=== PATIENT | male | born 1965 | race Caucasian/White ===

== ENCOUNTER 2017-05-05 14:16 | Emergency (ER) | payer MEDICARE ==
[~2017-05-05] VITALS: Ht 167.6 cm; Wt 121.0 kg
[~2017-05-05 14:16] MED LIST: ATIVAN1 MG PO; B12; BUT/APAP/CAF PO; CARVEDILOL12.5 MG PO; CYMBALTA60 MG PO; DIABETIC SHOES XX; DILANTIN100 MG PO; DULOXETINE HCL60 MG; DULOXETINE HCL60 MG PO; FIORICET 50-3001 CAP PO; FIORICET PO; GABAPENTIN800 MG PO; GLIPIZIDE10 M3; GLIPIZIDE10 M3 PO; IMITREX50 M1 PO; LAMICTAL150 M1 PO; LAMICTAL25 M2 PO; LISINOP/HCTZ1 TA2 PO; LORTAB 7.5-3251 TAB; MEPERITAB50 MG PO; METFORMIN HCL1000 MG PO; NAPROSYN500 MG PO; NAPROXEN500 MG PO; NORCO1 TA1 PO; PHENERGAN25 MG/TAB PO; PHENYTOIN EX100 M1 PO; PRAVASTATIN SOD20 MG PO; PRAVASTATIN SOD40 MG PO; PRAVASTATIN80 MG PO; TIZANIDINE4 MG PO; TRAZODONE100 MG PO; VIAGRA25 MG PO; ZANAFLEX4 M2 PO
[2017-05-05] MEDS ORDERED: RIZATRIPTAN BEN10 M1 PO (14:41)
[2017-05-05 15:44] VITALS: BP 143/100
== END 2017-05-05 15:49 | disposition home or self-care (01) ==
LOC: ED 14:16
DX: S43.402A Unspecified sprain of left shoulder joint, initial encounter (principal); I10 Essential (primary) hypertension; E11.9 Type 2 diabetes mellitus without complications; F41.9 Anxiety disorder, unspecified; X58.XXXA Exposure to other specified factors, initial encounter

== ENCOUNTER 2017-08-09 09:11 | Emergency (ER) | payer MEDICARE ==
[~2017-08-09] VITALS: Ht 167.6 cm; Wt 120.4 kg
[~2017-08-09 09:11] MED LIST changes: +RIZATRIPTAN BEN10 M1 PO
[2017-08-09] MEDS ORDERED: TEMAZEPAM15 MG PO (09:27)
[2017-08-09] MEDS ORDERED: ROBAXIN-750750 MG PO (09:28)
[2017-08-09] MEDS ORDERED: COUMADIN5 MG PO ×2 (09:34→09:35)
[2017-08-09 10:27] LABS: INTERNATIONAL NORMALIZED RATIO 1.7 RATIO (0.7-1.3); PROTHROMBIN TIME 18.8 SECONDS (9.0-12.5)
[2017-08-09 10:59] VITALS: BP 120/79
== END 2017-08-09 11:11 | disposition home or self-care (01) ==
LOC: ED 09:11
PROVIDERS: Family Medicine
DX: R79.1 Abnormal coagulation profile (principal); I82.5Z1 Chronic embolism and thrombosis of unspecified deep veins of right distal lower extremity; I10 Essential (primary) hypertension; E11.9 Type 2 diabetes mellitus without complications; Z79.84 Long term (current) use of oral hypoglycemic drugs

== ENCOUNTER → 2017-11-11 | Outpatient (REF) | payer MEDICARE ==
[~2017-11-11] MED LIST changes: +COUMADIN5 MG PO; +ROBAXIN-750750 MG PO; +TEMAZEPAM15 MG PO
[2017-11-11 10:13] LABS: HEMATOCRIT 41.9 % (39.0-50.0); HEMOGLOBIN 13.5 g/dl (14.0-18.0); MEAN CELL VOLUME 92.3 fL CALC (80.0-100.0); MEAN CORPUSCULAR HGB 29.7 pG CALC (26.0-32.0); MEAN CORPUSCULAR HGB CONC 32.2 g/L CALC (32.0-36.0); RED BLOOD COUNT 4.54 mill/uL (4.70-6.10); RED CELL DISTRI WIDTH 13.6 % (11.5-15.5)
[2017-11-11 10:39] LABS: ALBUMIN 4.4 g/dL (3.2-5.0); ALKALINE PHOSPHATASE 62 u/l (38-126); ANION GAP 16 (6-22 (CALC)); BILIRUBIN, TOTAL 0.3 mg/dL (0.0-1.4); BUN 17 mg/dL (9-20); BUN/CREATININE RATIO 20 (12-20 (CALC)); CALCULATED LDLCHOLESTEROL 90 mg/dL (62-129 (CALC)); CARBON DIOXIDE 30 mmol/l (22-30); CHLORIDE 100 mmol/l (95-108); CHOLESTEROL HDL RATIO 3.6 (<4.4 (CALC)); CREATININE 0.9 mg/dL (0.7-1.3); GFR > 60 ML/MIN (>=60 (CALC)); GFR FOR AFR.AMER. > 60 ML/MIN (>=60 (CALC)); HDL CHOLESTEROL 49 mg/dL (>=40); POTASSIUM 5.1 mmol/l (3.5-5.1); SGOT/AST 33 u/l (17-59); SODIUM 141 mmol/l (137-146); TOTAL CHOLESTEROL 174 mg/dl (0-199); TOTAL PROTEIN 7.3 g/dL (6.3-8.2); TOTAL TRIGLYCERIDES 176 mg/dl (30-149); VLDL CHOLESTROL 35 mg/dl (8-62 (CALC))
[2017-11-11 11:05] LABS: TSH, 3RD GENERATION 1.22 uIU/mL (0.47 - 4.68)
== END | disposition home or self-care (01) ==
LOC: LAB 09:09
PROVIDERS: ATTEND Internal Medicine
DX: E11.69 Type 2 diabetes mellitus with other specified complication (principal); E29.1 Testicular hypofunction; I10 Essential (primary) hypertension

== ENCOUNTER 2018-01-23 20:23 | Observation (INO) | payer MEDICARE ==
[~2018-01-23] VITALS: Ht 172.7 cm; Wt 127.2 kg
[2018-01-23 21:19] LABS: HEMATOCRIT 40.6 % (39.0-50.0); HEMOGLOBIN 13.4 g/dl (14.0-18.0); IMMATURE GRANULOCYTES 0.9 % (0.0-5.0); MEAN CELL VOLUME 91.9 fL CALC (80.0-100.0); MEAN CORPUSCULAR HGB 30.3 pG CALC (26.0-32.0); NEUT# 4.66 thou/uL (1.82-7.42); RED BLOOD COUNT 4.42 mill/uL (4.70-6.10); RED CELL DISTRI WIDTH 12.9 % (11.5-15.5)
[2018-01-23 21:32] LABS: ALBUMIN 4.7 g/dL (3.2-5.0); ALKALINE PHOSPHATASE 63 u/l (38-126); ANION GAP 17 (6-22 (CALC)); BILIRUBIN, TOTAL 0.4 mg/dL (0.0-1.4); BUN 14 mg/dL (9-20); BUN/CREATININE RATIO 12 (12-20 (CALC)); CARBON DIOXIDE 28 mmol/l (22-30); CHLORIDE 98 mmol/l (95-108); CREATININE 1.1 mg/dL (0.7-1.3); GFR > 60 ML/MIN (>=60 (CALC)); GFR FOR AFR.AMER. > 60 ML/MIN (>=60 (CALC)); POTASSIUM 4.6 mmol/l (3.5-5.1); SODIUM 139 mmol/l (137-146); TOTAL PROTEIN 7.5 g/dL (6.3-8.2)
[2018-01-23 21:36] LABS: SGOT/AST 81 u/l (17-59)
[2018-01-23 21:44] LABS: MYOGLOBIN 64 ng/mL (0 - 121)
[2018-01-23 21:46] LABS: ACT PARTIAL THROMBO TIME 31.1 SECONDS (20.0-32.5)
[2018-01-23 21:55] LABS: INTERNATIONAL NORMALIZED RATIO 0.9 RATIO (0.7-1.3); PROTHROMBIN TIME 9.9 SECONDS (9.0-12.5)
[2018-01-23] MEDS ORDERED: ELIQUIS5 MG PO (22:26)
[2018-01-23 23:24] LABS: BARBITURATES NEGATIVE (NEGATIVE); COCAINE NEGATIVE (NEGATIVE); METHADONE NEGATIVE (NEGATIVE); OXCYCODONE NEGATIVE (NEGATIVE); TETRAHYDROCANNABIONOL NEGATIVE (NEGATIVE); TRICYLIC ANTIDEPRESSANTS NEGATIVE (NEGATIVE)
[2018-01-23 23:27] LABS: URINE BILIRUBIN - DIPSTICK NEGATIVE (NEGATIVE); URINE BLOOD DIPSTICK NEGATIVE (NEGATIVE); URINE COLOR YELLOW; URINE GLUCOSE - DIPSTICK NEGATIVE (NEGATIVE); URINE KETONE NEGATIVE (NEGATIVE); URINE LEUK ESTERASE NEGATIVE (NEGATIVE); URINE NITRITE - DIPSTICK NEGATIVE (Negative); URINE PROTEIN - DIPSTICK NEGATIVE (NEG-TRACE); URINE SPECIFIC GRAVITY <=1.005; URINE UROBILINOGEN - DIPSTICK 0.2 E.U./dL (0.2)
[2018-01-24 00:15] VITALS: BP 150/68
[2018-01-24 04:59] VITALS: BP 164/76
[2018-01-24 07:00] VITALS: BP 123/73
[2018-01-24 11:34] VITALS: BP 133/67
== END 2018-01-24 14:08 | disposition home or self-care (01) ==
LOC: ED 20:23 → ED-I 23:39 → ED 23:53 → MS2 23:54
PROVIDERS: Emergency Medicine; ADMIT Internal Medicine; ATTEND Internal Medicine
DX: R55 Syncope and collapse (principal); R00.2 Palpitations; I82.501 Chronic embolism and thrombosis of unspecified deep veins of right lower extremity; I10 Essential (primary) hypertension; E11.40 Type 2 diabetes mellitus with diabetic neuropathy, unspecified; E78.5 Hyperlipidemia, unspecified; F41.9 Anxiety disorder, unspecified; R09.02 Hypoxemia; Z79.01 Long term (current) use of anticoagulants

== ENCOUNTER 2018-03-06 11:56 | Emergency (ER) | payer MEDICARE ==
[~2018-03-06] VITALS: Ht 172.7 cm; Wt 125.5 kg
[~2018-03-06 11:56] MED LIST changes: +ELIQUIS5 MG PO
[2018-03-06] MEDS ORDERED: COREG25 MG PO (12:52)
[2018-03-06] MEDS ORDERED: GLUCOTROL10 MG PO (12:53)
[2018-03-06] MEDS ORDERED: GABAPENTIN800 MG PO (12:53)
[2018-03-06] MEDS ORDERED: PRAVASTATIN80 MG PO (12:54)
[2018-03-06] MEDS ORDERED: LISINOP/HCTZ1 TA2 PO (12:54)
[2018-03-06] MEDS ORDERED: METFORMIN500 M2 PO (12:54)
[2018-03-06] MEDS ORDERED: CYMBALTA60 MG PO (12:55)
[2018-03-06] MEDS ORDERED: BACTRIM DS1 TAB PO ×2 (12:58→12:59)
[2018-03-06 13:02] VITALS: BP 122/81
== END 2018-03-06 13:02 | disposition home or self-care (01) ==
LOC: ED 11:56
PROC: 0HCGXZZ Extirpation of Matter from Left Hand Skin, External Approach (ICD-10-PCS; principal; 2018-03-06)
DX: S60.552A Superficial foreign body of left hand, initial encounter (principal); M19.90 Unspecified osteoarthritis, unspecified site; I10 Essential (primary) hypertension; E11.9 Type 2 diabetes mellitus without complications; W45.8XXA Other foreign body or object entering through skin, initial encounter; Y93.H9 Activity, other involving exterior property and land maintenance, building and construction; Y92.008 Other place in unspecified non-institutional (private) residence as the place of occurrence of the external cause; Z86.718 Personal history of other venous thrombosis and embolism

== ENCOUNTER 2018-04-23 01:32 | Emergency (ER) | payer MEDICARE ==
[~2018-04-23] VITALS: Ht 172.7 cm; Wt 127.2 kg
[~2018-04-23 01:32] MED LIST changes: +BACTRIM DS1 TAB PO; +COREG25 MG PO; +GLUCOTROL10 MG PO; +METFORMIN500 M2 PO
[2018-04-23] MEDS ORDERED: ACTOS15 MG PO (01:57)
[2018-04-23] MEDS ORDERED: MINIPRESS1 MG PO (01:58)
[2018-04-23 02:19] LABS: HEMATOCRIT 42.6 % (39.0-50.0); HEMOGLOBIN 13.6 g/dl (14.0-18.0); IMMATURE GRANULOCYTES 0.6 % (0.0-5.0); MEAN CELL VOLUME 94.2 fL CALC (80.0-100.0); MEAN CORPUSCULAR HGB 30.1 pG CALC (26.0-32.0); MEAN CORPUSCULAR HGB CONC 31.9 g/L CALC (32.0-36.0); NEUT# 4.48 thou/uL (1.82-7.42); RED BLOOD COUNT 4.52 mill/uL (4.70-6.10); RED CELL DISTRI WIDTH 12.6 % (11.5-15.5)
[2018-04-23 02:26] LABS: ALBUMIN 4.9 g/dL (3.2-5.0); ALKALINE PHOSPHATASE 68 u/l (38-126); ANION GAP 17 (6-22 (CALC)); BILIRUBIN, TOTAL 0.3 mg/dL (0.0-1.4); BUN 20 mg/dL (9-20); BUN/CREATININE RATIO 20 (12-20 (CALC)); CARBON DIOXIDE 30 mmol/l (22-30); CHLORIDE 98 mmol/l (95-108); GFR > 60 ML/MIN (>=60 (CALC)); GFR FOR AFR.AMER. > 60 ML/MIN (>=60 (CALC)); POTASSIUM 4.6 mmol/l (3.5-5.1); SGOT/AST 46 u/l (17-59); SODIUM 140 mmol/l (137-146); TOTAL PROTEIN 7.6 g/dL (6.3-8.2)
[2018-04-23 02:40] LABS: MYOGLOBIN 80 ng/mL (0 - 121)
[2018-04-23] MEDS ORDERED: TORADOL PO (03:22)
[2018-04-23 03:34] VITALS: BP 133/65
== END 2018-04-23 03:34 | disposition home or self-care (01) ==
LOC: ED 01:32
PROVIDERS: Family Medicine
DX: R07.89 Other chest pain (principal); I10 Essential (primary) hypertension; E11.9 Type 2 diabetes mellitus without complications; Z79.84 Long term (current) use of oral hypoglycemic drugs; R06.02 Shortness of breath; Z86.718 Personal history of other venous thrombosis and embolism; E78.5 Hyperlipidemia, unspecified

== ENCOUNTER 2019-01-03 07:20 | Day surgery (SDC) | payer MEDICARE ==
[~2019-01-03] VITALS: Ht 172.7 cm; Wt 127.0 kg
[~2019-01-03 07:20] MED LIST changes: +ACTOPLUS M15 MG/500 PO; +ACTOS15 MG PO; +ASPIRIN325 MG PO; +CYCLOBENZAPR10 MG PO; +METFORMIN1000 MG PO; +MINIPRESS1 MG PO; +PIOGLITAZONE HY15 MG PO; +PRAZOSIN HCL1 M1 PO; +RIZATRIPTAN BENZ5 M1; +TORADOL PO; +TRESIBA100 UNIT/M SC; +VITAMIN D5000 UNI1
[2019-01-03 08:58] VITALS: BP 127/78
[2019-02-21] MEDS ORDERED: ELIQUIS STARTER5 MG PO (08:32)
== END 2019-01-03 09:09 | disposition home or self-care (01) ==
LOC: ENDO 07:20
PROVIDERS: ATTEND Surgery
PROC: 0DBN8ZX Excision of Sigmoid Colon, Via Natural or Artificial Opening Endoscopic, Diagnostic (ICD-10-PCS; principal; 2019-01-03)
DX: Z12.11 Encounter for screening for malignant neoplasm of colon (principal); D12.5 Benign neoplasm of sigmoid colon; E11.9 Type 2 diabetes mellitus without complications; I10 Essential (primary) hypertension; Z79.84 Long term (current) use of oral hypoglycemic drugs

== ENCOUNTER 2019-02-20 19:44 | Observation (INO) | payer MEDICARE ==
[~2019-02-20] VITALS: Ht 172.7 cm; Wt 127.2 kg
[~2019-02-20 19:44] MED LIST changes: +LANTUS100 UNIT/M SC; -TRESIBA100 UNIT/M SC
--- NOTE | 2019-02-20 19:50 | NUR ---
PATIENT TO ROOM 10 VIA WHEELCHAIR. TRIAGE COMPLETED AT BEDSIDE. AWAITING MD ALAN.
[2019-02-20 20:55] LABS: HEMATOCRIT 37.9 % (39.0-50.0); HEMOGLOBIN 12.5 g/dl (14.0-18.0); IMMATURE GRANULOCYTES 0.5 % (0.0-5.0); MEAN CELL VOLUME 92.2 fL CALC (80.0-100.0); MEAN CORPUSCULAR HGB 30.4 pG CALC (26.0-32.0); NEUT# 5.7 thou/uL (1.82-7.42); RED BLOOD COUNT 4.11 mill/uL (4.70-6.10); RED CELL DISTRI WIDTH 12.6 % (11.5-15.5)
[2019-02-20 21:05] LABS: ALBUMIN 4.2 g/dL (3.2-5.0); ALKALINE PHOSPHATASE 67 u/l (38-126); ANION GAP 13 (6-22 (CALC)); BILIRUBIN, TOTAL 0.3 mg/dL (0.0-1.4); BUN 18 mg/dL (9-20); BUN/CREATININE RATIO 21 (12-20 (CALC)); CARBON DIOXIDE 31 mmol/l (22-30); CHLORIDE 96 mmol/l (95-108); CREATININE 0.8 mg/dL (0.7-1.3); GFR > 60 ML/MIN (>=60 (CALC)); GFR FOR AFR.AMER. > 60 ML/MIN (>=60 (CALC)); POTASSIUM 4.2 mmol/l (3.5-5.1); SGOT/AST 33 u/l (17-59); SODIUM 135 mmol/l (137-146); TOTAL PROTEIN 6.8 g/dL (6.3-8.2)
--- NOTE | 2019-02-20 21:15 | NUR ---
BEDRESTING. OG U/S RESULTS
--- NOTE | 2019-02-20 21:30 | NUR ---
TO BATHROOM VIA W/C.
--- NOTE | 2019-02-20 22:00 | NUR ---
BEDRESTIN. NO AMBULATION
--- NOTE | 2019-02-20 22:30 | NUR ---
LOVENOX ORDERED. REQUESTING IT BE GIVEN SOON POSSIBLE. CALLED TO ASK TO PROFIL SO IT CAN BE GIVEN IN ER 9AS ICU DOES NOT HAVE 1100MG IN PIXIS)
--- NOTE | 2019-02-20 22:33 | NUR ---
REPORT CALLED TO SHO. TO BE MS OVERFLOW IN ICU
--- NOTE | 2019-02-20 22:50 | NUR ---
LOVENOX PROFILED AT THIS TIME AND GIVEN RX-TOLERATED WELL
[2019-02-20 23:00] VITALS: BP 121/62
--- NOTE | 2019-02-20 23:57 | NUR ---
PT. ARRIVES VIA STRETCHER FROM ER. AMBULATORY WITH STEADY GAIT FROM WHEELCHAIR TO ICU BED. PT. DENIES COMPLAINTS OF PAIN AT THIS TIME. SKIN WARM AND DRY. CALL LIGHT AND SYSTEM EXPLAINED TO PATIENT ALONG WITH USE OF CALL BEE. PLACED ON BP/PULSE OX ON ARIVAL TO UNIT.
--- NOTE | 2019-02-21 00:10 | NUR ---
PT. MEDICATED WITH SLEEPING PILLS PER MD ORDERS. RESPS REMAIN EVEN AND UNLABORED. SPO2 IS 89-92%. DENIES OTHER COMPLAINTS OR NEEDS. WILL CONTINUE TO CLOSELY MONITOR.
--- NOTE | 2019-02-21 03:27 | NUR ---
PT. RESTING IN BED IN NO DISTRESS. PT. WITH INTERMITTENT EPISODES OF APNEA WITH SPO2 IN THE 85% RANGE WHEN APENIC, OTHERWISE, HE IS 90-93% ON R/A. NO DISTRESS.
[2019-02-21 04:00] VITALS: BP 121/70
--- NOTE | 2019-02-21 07:40 | NUR ---
pt awake in bed; no apparent distress noted; assessment completed at this time; pt alert and oriented; admits to pain to rle; will notify md; no n/v noted; resp even and unlabored; lungs clear; skin color wnl; ra; hr reg; strong pulses; edema noted to rle; abd soft with bs present; no bm noted per narrative writer; pt admits to voiding without complication; no urine to inspect at this time; pt assist self to bathroom; #20 flushed and patent to rfa; no redness or edema noted at site; pt adamant about being discharged; aware he will have to wait for MD; plan of care/ am meds explained; call light within reach; will continue to monitor
--- NOTE | 2019-02-21 08:16 | NUR ---
awake up to chair; no apparent distress noted; pt offers no complaints; call light within reach; will contiune to monitor
--- NOTE | 2019-02-21 08:22 | NUR ---
Dr Orr present at bedside to assess pt and discuss plan of care
[2019-02-21] MEDS ORDERED: ELIQUIS STARTER5 MG PO ×2 (08:32)
[2019-02-21 09:13] VITALS: BP 114/50
[2019-02-21 09:16] VITALS: BP 114/50
--- NOTE | 2019-02-21 10:00 | NUR ---
awake in recliner; no apparent distress noted; CM at bedside; call lgiht within reach; will continue to monitor
--- NOTE | 2019-02-21 10:15 | NUR ---
discharge instructions reviewed in detail; #20 removed from rfa with catheter tip intactg; awaiting transport;
--- NOTE | 2019-02-21 11:00 | NUR ---
awake in bed; awaiting transport home; offers no complaints
--- NOTE | 2019-02-21 11:53 | NUR ---
Discharge instructions given. Patient verbalizes understanding of same. Discharged in stable condition via Wheelchair to Home with spouse. All belongings sent with pt.
== END 2019-02-21 11:53 | disposition home or self-care (01) ==
LOC: ED 19:44 → ED-I 21:40 → ED 21:57 → ICU 21:58
PROVIDERS: Emergency Medicine; ADMIT Internal Medicine; ATTEND Internal Medicine
DX: I82.811 Embolism and thrombosis of superficial veins of right lower extremity (principal); E11.40 Type 2 diabetes mellitus with diabetic neuropathy, unspecified; I10 Essential (primary) hypertension; Z86.718 Personal history of other venous thrombosis and embolism; Z79.82 Long term (current) use of aspirin; Z79.4 Long term (current) use of insulin
CPT/HCPCS: J1650

== ENCOUNTER 2019-11-10 09:27 | Observation (INO) | payer MEDICARE ==
[2019-11-10] VITALS (9 sets, daily range): BP systolic 114–161; BP diastolic 69–104
[~2019-11-10] VITALS: Ht 167.6 cm; Wt 127.0 kg
[~2019-11-10 09:27] MED LIST changes: +ELIQUIS STARTER5 MG PO
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
[2019-11-10 10:05] LABS: HEMATOCRIT 42.1 % (39.0-50.0); HEMOGLOBIN 13.1 g/dl (14.0-18.0); IMMATURE GRANULOCYTES 0.8 % (0.0-5.0); MEAN CORPUSCULAR HGB 29.6 pG CALC (26.0-32.0); MEAN CORPUSCULAR HGB CONC 31.1 g/dL CAL (32.0-36.0); NEUT# 5.18 thou/uL (1.82-7.42); RED BLOOD COUNT 4.43 mill/uL (4.70-6.10)
--- NOTE | 2019-11-10 10:15 | NUR ---
REPORT AND HANDOFF TO SADIE MOORE
[2019-11-10 10:26] LABS: ANION GAP 16 (6-22 (CALC)); BUN 15 mg/dL (9-20); BUN/CREATININE RATIO 17 (12-20 (CALC)); CARBON DIOXIDE 27 mmol/l (22-30); CHLORIDE 98 mmol/l (95-108); CREATININE 0.9 mg/dL (0.7-1.3); GFR > 60 ML/MIN (>=60 (CALC)); GFR FOR AFR.AMER. > 60 ML/MIN (>=60 (CALC)); POTASSIUM 4.7 mmol/l (3.5-5.1); SODIUM 136 mmol/l (137-146)
--- NOTE | 2019-11-10 12:45 | NUR ---
REPORT GIVEN AND PATIENT TRANSPORTED TO ICU
--- NOTE | 2019-11-10 12:50 | NUR ---
PT TO ICU BED 6 VIA ER STRETCHER. PT ABLE TO AMBULATE TO RECLINER. PT REFUSING TO GET INTO BED. PT DID AGREE TO CHANGE INTO GOWN. PT CHANGED INTO GOWN. PT AMBULATED TO BATHROOM TO VOID REFUSED TO USE URINAL. PT IS ALERT AND ORIENTED X3. ADMISSION ASSESSMENT COMPLTED AT THIS TIME. IV PATENT X1. PT ORIENTED TO ROOM, UNIT, AND CALL LIGHT SYSTEM. CALL LIGHT IN REACH. WILL CONTINUE TO MONITOR
--- NOTE | 2019-11-10 13:17 | NUR ---
IN ROOM VISITING WITH PT. LUNCH TRAY PROVIDED.
[2019-11-10] MEDS ORDERED: XARELTO20 MG PO (15:09)
--- NOTE | 2019-11-10 15:52 | NUR ---
PT RESTING IN BED AWAKE AND WATCHING TV. RESP ARE EVEN AND UNLABORED. NO DISTRESS NOTED. CALL LIGHT IN REACH. SNACK PROVIDED PER PT REQUEST. WILL CONTINUE TO MONITOR.
--- NOTE | 2019-11-10 17:46 | NUR ---
PT SET UP FOR PM MEAL. RESP ARE EVEN AND UNLABORED NO DISTRESS NOTED. CALL LIGHT IN REACH. WILL CONTINUE TO MONITOR.
--- NOTE | 2019-11-10 18:45 | NUR ---
PATIENT LAYS IN HIGH BAUTISTA'S. PATIENT IS AWAKE, ALERT AND ORIENTED X4. ON RA, REPORTS SOB HAS SUBSIDED. PT DID COMPLAIN OF FEELING SWEATY/HOT EARLIER, PT IS AFEBRILE NOW. NURSE ASSESSMENT PERFORMED. ST ON TELEMETRY, 114 BPM. FOLLOWS ALL DIRECTIONS, CONVERSATES. R-H 20 G IV IS INTACT, SALINE LOCKED, NO REDNESS OR TENDERNESS NOTED. POC DISCUSSED. PATIENT REQUESTS TULIO MICHELLE AND A SNACK, WILL PROVIDE. CALL LIGHT WITHIN REACH.
--- NOTE | 2019-11-10 20:20 | NUR ---
PATIENT UP TO THE RESTROOM, IS INDEPENDENT. SITS ON THE SIDE OF THE BED. NO COMPLAINTS OR NEEDS AT THIS TIME. CALL LIGHT WITHIN REACH.
--- NOTE | 2019-11-10 21:20 | NUR ---
PATIENT ABLE TO SWALLOW BEDTIME MEDS WITHOUT DIFFICULTY, REQUESTS A SNACK, PROVIDED A YOGURT. PATIENT CONVERSATES. NO ACUTE DISTRESS SHOWN. CALL LIGHT WITHIN REACH.
[2019-11-11] VITALS (7 sets, daily range): BP systolic 142–176; BP diastolic 68–89
--- NOTE | 2019-11-11 00:11 | NUR ---
PATIENT AWAKENS EASILY WHEN SPOKEN TO, PT COMPLAINS OF FEELING HOT, HE HAS A WET WASHCLOTH OVER HIS HEAD. AFEBRILE. BP 150'S SYSTOLIC. O2 SAT IN THE 80'S, NO SOB NOTED.
--- NOTE | 2019-11-11 00:24 | NUR ---
PT PLACED ON NC 2 L/MIN OF O2, O2 SATS DROP TO 84% AT TIMES WHEN HE SLEEPS.
--- NOTE | 2019-11-11 03:27 | NUR ---
PT IS AWAKE, TURNS TV ON. CONVERSATES, NO ACUTE DISTRESS SHOWN. CALL LIGHT WITHIN REACH.
--- NOTE | 2019-11-11 06:00 | NUR ---
PATIENT AWAKENS EASILY WITH NOISE. PT IS IN NO ACUTE DISTRESS, DOES NOT HVE ANY COMPLAINTS. CALL LIGHT WITHIN REACH.
--- NOTE | 2019-11-11 07:42 | NUR ---
RECIEVED REPORT FROM TERESA ERNANDEZ. PT RESTING IN SEMI FOWLERS POSITION UPON ENTERING ROOM.INTRODUCED SELF TO PT AND DISCUSSED POC. PT IS A/OX3. ASSESSMENT AND VITALS OBATINED. BP 174/79, HR 93, O2 96% ON ROOM AIR. RESPIRATIONS ARE EVEN AND UNLABORED WITH NO SIGNS OF DISTRESS NOTED. LUNG SOUNDS ARE CLEAR. HEART RHYTHM IS NORMAL WITH TELE IN PLACE. BOWEL SOUNDS ARE ACTIVE, LAST REPORTED BM 11/10/2019. RADIAL AND PEDAL PULSES ARE STRONG WITH NORMAL CAPILLARY REFILL. #20G IN RH FLUSHED, SITE APPEARS HEALTHY AND PATENT. SKIN IS WARM DRY AND INTACT. PT RESENTS WITH SMALL BUMB ON LLQ OF ABD. PT DENIES ANY PAIN OR DISCOMFORTS AT THIS TIME. ALL SAFETY PRECAUTIONS ARE IN PLACE. WILL CONTINUE TO MONITOR.
--- NOTE | 2019-11-11 08:39 | NUR ---
DR JENKINS AT BEDSIDE DISCUSSING POC.
[2019-11-11] MEDS ORDERED: MEDDOSEPAK PO (08:42)
[2019-11-11] MEDS ORDERED: EPIPEN 2-P0.3 MG/0.3 IM (08:42)
[2019-11-11] MEDS ORDERED: BENADRYL 25MG C25 MG PO (08:43)
--- NOTE | 2019-11-11 10:29 | NUR ---
Discharge instructions given. Patient verbalizes understanding of same. Discharged in stable condition via Wheelchair to Home with family. All belongings sent with pt. PT EDUCATED ON DISCHARGE INSTRUCTIONS AND NEW MEDICATIONS EPI PEN, MEDOL DOSE PACK AND BENADRYL. PT VERBAILZED UNDERSTANDING. IV REMOVED WITH CATHATER STILL INTACT. PT TOLERATED WELL. TELE MONITORING REMOVED. PT DISCHARGE VIA WHEELCHAIR IN STABLE CONDITION ACCOMPAINED BY AND GRACIA MORENO
== END 2019-11-11 10:29 | disposition home or self-care (01) ==
LOC: ED 09:27 → ED-I 11:36 → ED 11:52 → ICU 11:53
PROVIDERS: Family Medicine; ADMIT Internal Medicine; ATTEND Internal Medicine
DX: T63.441A Toxic effect of venom of bees, accidental (unintentional), initial encounter (principal); T78.2XXA Anaphylactic shock, unspecified, initial encounter; I10 Essential (primary) hypertension; E11.40 Type 2 diabetes mellitus with diabetic neuropathy, unspecified; E66.01 Morbid (severe) obesity due to excess calories; X58.XXXA Exposure to other specified factors, initial encounter; Z86.718 Personal history of other venous thrombosis and embolism; Z79.84 Long term (current) use of oral hypoglycemic drugs; Z20.828 Contact with and (suspected) exposure to other viral communicable diseases

== ENCOUNTER 2020-02-24 07:45 | Emergency (ER) | payer MEDICARE ==
[~2020-02-24] VITALS: Ht 167.6 cm; Wt 127.0 kg
[~2020-02-24 07:45] MED LIST changes: +BENADRYL 25MG C25 MG PO; +EPIPEN 2-P0.3 MG/0.3 IM; +MEDDOSEPAK PO; +XARELTO20 MG PO
[2020-02-24] MEDS ORDERED: CYMBALTA60 MG PO (08:31)
[2020-02-24 08:34] LABS: HEMATOCRIT 40.8 % (39.0-50.0); IMMATURE GRANULOCYTES 0.5 % (0.0-5.0); MEAN CELL VOLUME 93.6 fL CALC (80.0-100.0); MEAN CORPUSCULAR HGB 29.8 pG CALC (26.0-32.0); MEAN CORPUSCULAR HGB CONC 31.9 g/dL CAL (32.0-36.0); NEUT# 5.14 thou/uL (1.82-7.42); RED BLOOD COUNT 4.36 mill/uL (4.70-6.10); RED CELL DISTRI WIDTH 12.7 % (11.5-15.5)
[2020-02-24] MEDS ORDERED: PRAVASTATIN20 MG PO (08:34)
[2020-02-24 08:40] LABS: PROTHROMBIN TIME 10.4 SECONDS (9.0-12.5)
[2020-02-24 08:42] LABS: ALBUMIN 4.7 g/dL (3.2-5.0); ALKALINE PHOSPHATASE 75 u/l (38-126); AMYLASE 37 u/l (30-110); ANION GAP 15 (6-22 (CALC)); BILIRUBIN, TOTAL 0.3 mg/dL (0.0-1.4); BUN 13 mg/dL (9-20); BUN/CREATININE RATIO 14 (12-20 (CALC)); CARBON DIOXIDE 29 mmol/l (22-30); CHLORIDE 98 mmol/l (95-108); CREATININE 0.9 mg/dL (0.7-1.3); GFR > 60 ML/MIN (>=60 (CALC)); GFR FOR AFR.AMER. > 60 ML/MIN (>=60 (CALC)); LIPASE 93 u/l (23-300); POTASSIUM 4.8 mmol/l (3.5-5.1); SGOT/AST 30 u/l (17-59); SODIUM 137 mmol/l (137-146); TOTAL PROTEIN 7.3 g/dL (6.3-8.2)
[2020-02-24] MEDS ORDERED: BACTRIM DS1 TAB PO (10:07)
[2020-02-24] MEDS ORDERED: LORTAB 1010 MG PO (10:07)
[2020-02-24 10:12] LABS: URINE BILIRUBIN - DIPSTICK NEGATIVE (NEGATIVE); URINE BLOOD DIPSTICK NEGATIVE (NEGATIVE); URINE COLOR YELLOW; URINE GLUCOSE - DIPSTICK NEGATIVE (NEGATIVE); URINE KETONE NEGATIVE (NEGATIVE); URINE LEUK ESTERASE NEGATIVE (NEGATIVE); URINE NITRITE - DIPSTICK NEGATIVE (Negative); URINE PH 6.5 (4.5-8.0); URINE PROTEIN - DIPSTICK NEGATIVE (NEG-TRACE); URINE UROBILINOGEN - DIPSTICK 0.2 E.U./dL (0.2)
[2020-02-24 10:30] VITALS: BP 134/60
== END 2020-02-24 10:37 | disposition home or self-care (01) ==
LOC: ED 07:45
PROVIDERS: Emergency Medicine
DX: K42.9 Umbilical hernia without obstruction or gangrene (principal); L08.9 Local infection of the skin and subcutaneous tissue, unspecified; I10 Essential (primary) hypertension; E11.9 Type 2 diabetes mellitus without complications; E66.01 Morbid (severe) obesity due to excess calories; Z86.718 Personal history of other venous thrombosis and embolism; Z79.4 Long term (current) use of insulin; Z20.822 Contact with and (suspected) exposure to COVID-19
CPT/HCPCS: Q9967

== ENCOUNTER 2020-02-29 08:13 | Day surgery (SDC) | payer MEDICARE ==
[~2020-02-29 08:13] MED LIST changes: +LORTAB 1010 MG PO; +PRAVASTATIN20 MG PO
[2020-02-29] MEDS ORDERED: PERCOCET 5/325M1 TAB PO (11:53)
[2020-02-29 12:15] VITALS: BP 162/73
== END 2020-02-29 12:35 | disposition home or self-care (01) ==
LOC: ORM 08:13
PROVIDERS: ATTEND Surgery
PROC: 0WQF0ZZ Repair Abdominal Wall, Open Approach (ICD-10-PCS; principal; 2020-02-29)
DX: K42.0 Umbilical hernia with obstruction, without gangrene (principal); I10 Essential (primary) hypertension; E11.9 Type 2 diabetes mellitus without complications; E66.01 Morbid (severe) obesity due to excess calories; Z86.718 Personal history of other venous thrombosis and embolism; Z79.4 Long term (current) use of insulin; Z20.822 Contact with and (suspected) exposure to COVID-19
CPT/HCPCS: J0131

== ENCOUNTER 2022-02-23 09:02 | Day surgery (SDC) | payer MEDICARE ==
[~2022-02-23] VITALS: Ht 167.6 cm; Wt 117.5 kg
[~2022-02-23 09:02] MED LIST changes: +PERCOCET 5/325M1 TAB PO
[2022-02-23 11:30] VITALS: BP 127/69
== END 2022-02-23 11:29 | disposition home or self-care (01) ==
LOC: ENDO 09:02 → ORM 10:00 → ENDO 11:29 → ORM 12:10
PROVIDERS: ATTEND Internal Medicine Gastroenterology
PROC: 0DBN7ZX Excision of Sigmoid Colon, Via Natural or Artificial Opening, Diagnostic (ICD-10-PCS; principal; 2022-02-23)
PROC: 0DBP7ZX Excision of Rectum, Via Natural or Artificial Opening, Diagnostic (ICD-10-PCS; 2022-02-23)
DX: Z12.11 Encounter for screening for malignant neoplasm of colon (principal); D12.5 Benign neoplasm of sigmoid colon; D12.8 Benign neoplasm of rectum; K64.8 Other hemorrhoids; I10 Essential (primary) hypertension; E11.69 Type 2 diabetes mellitus with other specified complication; E78.5 Hyperlipidemia, unspecified; Z79.4 Long term (current) use of insulin; Z79.84 Long term (current) use of oral hypoglycemic drugs; Z86.010 Personal history of colon polyps

== ENCOUNTER 2022-03-30 07:01 | Day surgery (SDC) | payer MEDICARE ==
[~2022-03-30] VITALS: Ht 170.2 cm; Wt 121.6 kg
[~2022-03-30 07:01] MED LIST changes: +CYCLOBENZAPRINE10 MG PO; +DODEX1000 MCG
[2022-03-30] MEDS ORDERED: PERCOCET 5/321 COMBO PO (08:26)
[2022-03-30 11:46] VITALS: BP 122/80
[2022-03-31] MEDS ORDERED: BACTRIM DS1 TAB PO (15:05)
== END 2022-03-30 12:30 | disposition home or self-care (01) ==
LOC: ORM 07:01
PROVIDERS: ATTEND Surgery
PROC: 0WUF4JZ Supplement Abdominal Wall with Synthetic Substitute, Percutaneous Endoscopic Approach (ICD-10-PCS; principal; 2022-03-30)
DX: K43.2 Incisional hernia without obstruction or gangrene (principal); I10 Essential (primary) hypertension; E11.40 Type 2 diabetes mellitus with diabetic neuropathy, unspecified; Z79.84 Long term (current) use of oral hypoglycemic drugs; E66.9 Obesity, unspecified
CPT/HCPCS: J0131; J0690; S0077

== ENCOUNTER 2022-10-10 09:03 | Emergency (ER) | payer MEDICARE ==
[~2022-10-10] VITALS: Ht 170.2 cm; Wt 121.0 kg
[~2022-10-10 09:03] MED LIST changes: +PERCOCET 5/321 COMBO PO
[2022-10-10 09:38] VITALS: BP 140/94
[2022-10-10 09:46] VITALS: BP 117/82
[2022-10-10 10:00] VITALS: BP 122/74
[2022-10-10 10:15] VITALS: BP 136/84
[2022-10-10] MEDS ORDERED: BACTRIM DS1 TAB PO (10:28)
[2022-10-10 10:30] VITALS: BP 130/77
[2022-10-10 10:34] VITALS: BP 130/77
== END 2022-10-10 10:46 | disposition home or self-care (01) ==
LOC: ED 09:03
PROC: 0HQFXZZ Repair Right Hand Skin, External Approach (ICD-10-PCS; principal; 2022-10-10)
DX: S61.212A Laceration without foreign body of right middle finger without damage to nail, initial encounter (principal); I10 Essential (primary) hypertension; E11.9 Type 2 diabetes mellitus without complications; Y92.833 Campsite as the place of occurrence of the external cause; W45.8XXA Other foreign body or object entering through skin, initial encounter; Y93.89 Activity, other specified; E66.9 Obesity, unspecified; Z86.718 Personal history of other venous thrombosis and embolism; Z79.01 Long term (current) use of anticoagulants; Z79.84 Long term (current) use of oral hypoglycemic drugs